=== PATIENT | female | born 1945 | race Caucasian/White ===

== ENCOUNTER 2018-05-17 11:09 | Outpatient (CLI) | payer OTHER ==
[~2018-05-17] VITALS: Ht 152.4 cm; Wt 58.1 kg
== END 2018-05-17 11:20 | disposition home or self-care (01) ==
LOC: OFIC 805 11:09
DX: H61.23 Impacted cerumen, bilateral (principal); H90.3 Sensorineural hearing loss, bilateral; H93.11 Tinnitus, right ear; R42 Dizziness and giddiness

== ENCOUNTER 2018-06-14 10:19 | Outpatient (CLI) | payer OTHER ==
[~2018-06-14] VITALS: Ht 152.4 cm; Wt 58.1 kg
== END 2018-06-14 10:40 | disposition home or self-care (01) ==
LOC: OFIC 805 10:19
DX: H90.3 Sensorineural hearing loss, bilateral (principal); H93.11 Tinnitus, right ear; R42 Dizziness and giddiness

== ENCOUNTER 2018-08-16 10:44 | Outpatient (CLI) | payer OTHER ==
[~2018-08-16] VITALS: Ht 152.4 cm; Wt 59.0 kg
== END 2018-08-16 11:00 | disposition home or self-care (01) ==
LOC: OFIC 805 10:44
DX: H61.23 Impacted cerumen, bilateral (principal); H93.11 Tinnitus, right ear; M26.69 Other specified disorders of temporomandibular joint

== ENCOUNTER 2023-05-17 12:02 | Emergency (ER) | payer OTHER ==
[~2023-05-17] VITALS: Ht 160 cm; Wt 46.7 kg
[2023-05-17] MEDS ORDERED: ATACAND32 MG PO (13:16)
[2023-05-17] MEDS ORDERED: FENTANYL 050 MCG/11 IJ (13:17)
== END 2023-05-17 15:50 | disposition home or self-care (01) ==
LOC: ER
DX: R00.2 Palpitations (principal); Z88.6 Allergy status to analgesic agent